=== PATIENT | female | born 1995 | race African-American/Black ===

== ENCOUNTER 2017-06-19 22:56 | Emergency (ER) | payer OTHER ==
[~2017-06-19] VITALS: Ht 175.3 cm; Wt 115.9 kg
[2017-06-20 00:22] LABS: HEMATOCRIT 36.5 % (36.0-46.0); HEMOGLOBIN 11.9 G/DL (11.9-15.5); MCH 25.5 PG (29.0-34.0); MCHC 32.6 G/DL (30.0-36.0); MCV 78.3 FL (83-99); RBC DIS.WIDTH-CV 14.3 % (11.8-14.6); RBC DIS.WIDTH-SD 40.7 % (39-53); RED BLOOD COUNT 4.66 M/uL (3.80-5.20); WHITE BLOOD COUNT 8.3 K/uL (4.1-10.2)
[2017-06-20 00:30] LABS: CHLORIDE 106 mEq/L (99-109); POTASSIUM 3.8 mEq/L (3.7-5.4); SODIUM 139 mEq/L (136-147)
[2017-06-20 00:31] LABS: GLUCOSE 80 mg/dL (70-99)
[2017-06-20 00:35] LABS: CREATININE 0.9 mg/dL (0.6-1.3); GFR ESTIMATE (CALCULATED) > 59 mL/min/
[2017-06-20 00:36] LABS: UREA NITROGEN (BUN) 13 mg/dL (9-23)
[2017-06-20] MEDS ORDERED: INDOCIN50 MG PO (00:58)
[2017-06-20 01:19] LABS: PLAT.SUFFICIENCY ADEQUATE; PLATELET COUNT 229 K/uL (156-360)
[2017-06-20 01:24] LABS: CREATINE KINASE 812 IU/L (1-294)
[2017-06-20] MEDS ORDERED: ULTRACET1 TABLET PO (02:00)
[2017-06-20 02:15] VITALS: BP 113/68
== END 2017-06-20 02:19 | disposition home or self-care (01) ==
LOC: EME 22:56
PROVIDERS: Physician Assistant
DX: R60.0 Localized edema (principal); M79.662 Pain in left lower leg; M79.1 Myalgia; R74.8 Abnormal levels of other serum enzymes; E28.2 Polycystic ovarian syndrome; F17.200 Nicotine dependence, unspecified, uncomplicated
CPT/HCPCS: 80048; 82550; 85027; 93971; 99281; 99284

== ENCOUNTER 2017-08-29 16:23 | Emergency (ER) | payer OTHER ==
[~2017-08-29] VITALS: Ht 175.3 cm; Wt 112.2 kg
[~2017-08-29 16:23] MED LIST: INDOCIN50 MG PO; ULTRACET1 TABLET PO
[2017-08-29 17:14] LABS: HEMATOCRIT 38.9 % (36.0-46.0); HEMOGLOBIN 12.7 G/DL (11.9-15.5); MCH 25.7 PG (29.0-34.0); MCHC 32.6 G/DL (30.0-36.0); MCV 78.6 FL (83-99); RBC DIS.WIDTH-SD 39.8 % (39-53); RED BLOOD COUNT 4.95 M/uL (3.80-5.20); WHITE BLOOD COUNT 8.9 K/uL (4.1-10.2)
[2017-08-29 17:27] LABS: CHLORIDE 106 mEq/L (99-109); POTASSIUM 4.1 mEq/L (3.7-5.4); SODIUM 139 mEq/L (136-147)
[2017-08-29 17:29] LABS: GLUCOSE 84 mg/dL (70-99)
[2017-08-29 17:33] LABS: GFR ESTIMATE (CALCULATED) > 59 mL/min/
[2017-08-29 17:34] LABS: UREA NITROGEN (BUN) 11 mg/dL (9-23)
[2017-08-29 17:39] LABS: TROP-I INTERPRETATION NEGATIVE; TROPONIN-I < 0.01 ng/mL (0.0-0.30)
[2017-08-29 17:41] LABS: QUANTITATIVE HCG < 4.0 MIU/ML
[2017-08-29 17:51] LABS: PLAT.SUFFICIENCY ADEQUATE; PLATELET COUNT 257 K/uL (156-360)
[2017-08-29 20:53] LABS: TROP-I INTERPRETATION NEGATIVE; TROPONIN-I 0.01 ng/mL (0.0-0.30)
[2017-08-29] MEDS ORDERED: ATARAX,VISTARIL25 MG PO (21:47)
[2017-08-29 22:08] VITALS: BP 127/80
== END 2017-08-29 22:06 | disposition home or self-care (01) ==
LOC: EME 16:23
PROVIDERS: Physician Assistant
DX: R07.9 Chest pain, unspecified (principal); F41.9 Anxiety disorder, unspecified; F17.200 Nicotine dependence, unspecified, uncomplicated
CPT/HCPCS: 71046; 80048; 84484; 84702; 85027; 93005; 99281; 99284

== ENCOUNTER 2017-09-30 11:20 | Emergency (ER) | payer OTHER ==
[~2017-09-30] VITALS: Ht 177.8 cm; Wt 114.5 kg
[~2017-09-30 11:20] MED LIST changes: +ATARAX,VISTARIL25 MG PO
[2017-09-30 13:43] LABS: APPEARANCE CLEAR ((CLEAR)); BILIRUBIN NEGATIVE; BLOOD NEGATIVE; COLOR YELLOW ((YELLOW)); GLUCOSE (STRIP) NEGATIVE; KETONES NEGATIVE; LEUKOCYTES NEGATIVE; NITRITE POSITIVE; PROTEIN (STRIP) NEGATIVE; SPECIFIC GRAVITY 1.024 (1.000-1.030); UROBILINOGEN 0.2 MG/DL (0.2-1.0)
[2017-09-30 13:48] LABS: BACTERIA RARE /HPF; EPITHELIAL CELLS RARE /HPF; MUCUS TRACE /LPF; RED BLOOD CELLS 0-5 /HPF (0-5); WHITE BLOOD CELLS 0-5 /HPF (0-5)
[2017-09-30] MEDS ORDERED: NAPROSYN500 MG PO (14:24)
[2017-09-30] MEDS ORDERED: KEFLEX500 MG PO (14:24)
[2017-09-30 14:32] VITALS: BP 116/78
== END 2017-09-30 14:33 | disposition home or self-care (01) ==
LOC: EME 11:20
PROVIDERS: Nurse Practitioner Family
DX: N39.0 Urinary tract infection, site not specified (principal); R59.0 Localized enlarged lymph nodes; F17.200 Nicotine dependence, unspecified, uncomplicated
CPT/HCPCS: 81003; 81025; 87081; 87651 90; 99281; 99284